=== PATIENT | female | born 1955 | race African-American/Black ===

== ENCOUNTER 2019-06-20 12:06 | Inpatient (IN) | payer OTHER ==
[2019-06-20 12:32] VITALS: BMI 35.2
--- NOTE | 2019-06-20 12:53 | HP ---
COWS - Scale Resting Pulse: 1= [place] 81-100 Sweatin= Chills/Flushing Restless Observation: 1= Difficult to Sit Still Pupil Size: 1= Pupils >than Normal Bone or Joint Aches: 4=Acute Joint/Muscle Pain Runny Nose/ Eye Tearin= Nasal Congestion GI Upset > 30mins: 1= Stomach Cramp Tremor Observation: 1= Tremor [place], Not Seen Yawning Observation: 1= 1-2x During Session Anxiety or Irritability: 1=Feels Anxious/Irritable Goose Flesh Skin: 0=Smooth Skin COWS Score: 13 CIWA Score - Admission Criteria OASAS Guidelines: Admission for Medically Managed Detox: Requires at least one of the followin. CIWA greater than 12 2. Seizures within the past 24 hours 3. Delirium tremens within the past 24 hours 4. Hallucinations within the past 24 hours 5. Acute intervention needed for co occurring medical disorder 6. Acute intervention needed for co occurring psychiatric disorder 7. Severe withdrawal that cannot be handled at a lower level of care (continued vomiting, continued diarrhea, abnormal vital signs) requiring intravenous medication and/or fluids 8. Admitting History and Physical - Admission Chief Complaint: "I want to stop sniffing heroin." History of Present Illness: 64 year old female with opioid dependence with withdrawal. She was in detox in January 2019 and when she was released from [facility] she immediately relapsed and started sniffing heroin again for 30 years. The detox was too short she felt. She denies overdose but wants to stop before she does end up overdosing. She has been close to overdose in the past. She is using 12 bags of heroin intranasally every day. She does not smoke ciggarettes. PMH: HTN, Arthritis of knees Psurg: None Psych: None History Source: Patient Limitations to Obtaining History: No Limitations - Past Medical History Cardiovascular: Yes: HTN Rheumatology: Yes: Other (arthritis of knees but does not have a primary care doctor) Admission [facility] Allergies/Adverse Reactions: Allergies Allergy/AdvReac Type Severity Reaction Status Date / Time No Known Allergies Allergy Verified 06/20/19 12:38 Exam Limitations: No Limitations - Ebola screening Have you traveled outside of the country in the last 21 days: No Have you had contact with anyone from an Ebola affected area: No Have you been sick,other than usual withdrawal symptoms: No Do you have a fever: No - Review of Systems Constitutional: Chills, Diaphoresis EENT: reports: No Symptoms Reported Respiratory: reports: No Symptoms reported Cardiac: reports: No Symptoms Reported GI: reports: Nausea, Abdominal cramping : reports: No Symptoms Reported Musculoskeletal: reports: Back Pain, Joint Pain, Muscle Pain Integumentary: reports: No Symptoms Reported Neuro: reports: No Symptoms reported Endocrine: reports: No Symptoms Reported Hematology: reports: No Symptoms Reported Psychiatric: reports: Judgement Intact, Mood/Affect Appropiate, Orientated x3, Agitated, Anxious Other Systems: Reviewed and Negative Patient History - Patient Medical History Hx Anemia: No Hx Asthma: No Hx Chronic Obstructive Pulmonary Disease (COPD): No Hx Cancer: No Hx Cardiac Disorders: No Hx Congestive Heart Failure: No Hx Hypertension: Yes Hx Hypercholesterolemia: No Hx Pacemaker: No HX Cerebrovascular Accident: No Hx Seizures: No Hx Dementia: No Hx Diabetes: No Hx Gastrointestinal Disorders: No Hx Liver Disease: No Hx Genitourinary Disorders: No Hx Sexually Transmitted Disorders: No Hx Renal Disease (ESRD): No Hx Thyroid Disease: No Hx Human Immunodeficiency Virus (HIV): No Hx Hepatitis C: No Hx Depression: No Hx Suicide Attempt: No Hx Bipolar Disorder: No Hx Schizophrenia: No - Patient Surgical History Past Surgical History: No - PPD History Previous Implant?: Yes Documented Results: Negative w/o proof Implanted On Prior R Admission?: No Date: 11/25/18 Results: negative PPD to be Administered?: Yes - Smoking Cessation Smoking history: Never smoked Have you smoked in the past 12 months: No Hx Chewing Tobacco Use: No Initiated information on smoking cessation: No - Substances abused Heroin Substance route: Inhalation Frequency: Daily Amount used: $80 Age of first use: 31 Date of last use: 06/19/19 Admission Physical Exam BHS - Vital Signs Vital Signs: Vital Signs - 24 hr 06/20/19 12:17 Temperature 97.3 F L Pulse Rate 89 Respiratory 20 Rate Blood Pressure 138/102 H - Physical General Appearance: Yes: Mild Distress, Tremorous, Irritable, Sweating HEENTM: Yes: EOMI, Hearing grossly Normal, Normal ENT Inspection, Normocephalic , Normal Voice, JOLLY, Pharynx Normal, Tm's normal Respiratory: Yes: Chest Non-Tender, Lungs Clear, Normal Breath Sounds, No Respiratory Distress, No Accessory Muscle Use Neck: Yes: No masses,lesions,Nodules, Supple, Trachea in good position Breast: Yes: Other (pendulous breasts bilaterally) Cardiology: Yes: Regular Rhythm, Regular Rate, S1, S2 Abdominal: Yes: Normal Bowel Sounds, Non Tender, Increased Bowel Sounds, Protuberent Genitourinary: Yes: Within Normal Limits Back: Yes: Normal Inspection Musculoskeletal: Yes: full range of Motion, Gait Steady, Pelvis Stable Extremities: Yes: Normal Capillary Refill, Normal Inspection, Normal Range of Motion, Non-Tender Neurological: Yes: mender knit goods II-XII NML intact, Fully Oriented, Alert, Motor Strength 5/5, Normal Mood/Affect, Normal Response Integumentary: Yes: Normal Color, Warm Lymphatic: Yes: Within Normal Limits - Diagnostic (1) Opioid dependence with withdrawal Current Visit: Yes Status: Acute (2) Hypertension Current Visit: Yes Status: Acute (3) Obesity Current Visit: Yes Status: Acute (4) Arthritis of both knees Current Visit: Yes Status: Acute Cleared for Admission [facility] - Detox or Rehab [facility] Level of Care: Medically Managed Detox Regimen/Protocol: Methadone Claeared for Rehab Admission: No Screened but not Admitted - Documentation of Visit Screened but not Admitted: No Inpatient Rehab Admission - Rehab Decision to Admit Inpatient rehab admission?: No
[2019-06-20] MEDS ORDERED: cloNIDine HCL 0.1 MG TABLET PO PRN (12:56)
[2019-06-20] MEDS ORDERED: ACETAMINOPHEN 325 MG TABLET (FP) PO PRN ×2 (12:56)
[2019-06-20] MEDS ORDERED: BISMUTH SUBSALICYLATE 524 MG/30 ML UD PO PRN (12:56)
[2019-06-20] MEDS ORDERED: MAGNESIUM HYDROX 2400MG/30ML ORAL SUSPENSION 30 ML CUP PO PRN (12:56)
[2019-06-20] MEDS ORDERED: MENTHOL/PHENOL 1 EACH UD MM PRN (12:56)
[2019-06-20] MEDS ORDERED: MAG HYDROX/AL HYDROX/SIMETH 30 ML UNIT-DOSE CUP PO PRN (12:56)
[2019-06-20] MEDS ORDERED: METHOCARBAMOL 500 MG TABLET PO PRN (12:56)
[2019-06-20] MEDS ORDERED: MAGNESIUM CITRATE 300 ML BOTTLE PO PRN (12:56)
[2019-06-20] MEDS ORDERED: METHADONE HCL 10 MG TABLET (FOR DETOX USE ONLY) PO ONE (13:45)
[2019-06-20] MEDS: THIAMINE HCL 100 MG TABLET (FP) PO SCH (22:14)
[2019-06-20] MEDS: MELATONIN 5 MG TABLETS PO PRN (22:16)
[2019-06-20] MEDS: hydrOXYzine PAMOATE 25 MG CAPSULE (FP) PO PRN (22:16)
[2019-06-21] MEDS ORDERED: METHADONE HCL 10 MG TABLET (FOR DETOX USE ONLY) ONE (08:20)
[2019-06-21] MEDS ORDERED: METHADONE HCL 5 MG TABLET (FOR DETOX USE ONLY) ONE (08:20)
--- NOTE | 2019-06-21 09:23 | PN ---
BHS COWS - Scale Resting Pulse: 1= [place] 81-100 Sweatin= Chills/Flushing Restless Observation: 0= Sits Still Pupil Size: 1= Pupils >than Normal Bone or Joint Aches: 1= Mild Discomfort Runny Nose/ Eye Tearin= None GI Upset > 30mins: 1= Stomach Cramp Tremor Observation of Outstretched Hands: 2= Slight Tremor Visible Yawning Observation: 0= None Anxiety or Irritability: 2=Irritable/Anxious Goose Flesh Skin: 3=Piloerection COWS Score: 12 BHS Progress Note (SOAP) Subjective: 64 years old female admitted on 06/20/19 for opiate withdrawal sx management treating with methadone detox regimen ate breakfast feeling tired resting on bed limited conversation with staff Objective: 06/21/19 09:22 Vital Signs Temperature 97.3 F L 06/21/19 09:12 Pulse Rate 72 06/21/19 09:12 Respiratory Rate 18 06/21/19 09:12 Blood Pressure 136/87 06/21/19 09:12 O2 Sat by Pulse Oximetry (%) Laboratory Last Values POC Urine HCG, Qual Negative 06/20/19 12:57 lab pending bp elevation clonidine 0.1 mg po q6h prn Assessment: 06/21/19 09:23 opiate withdrawal Plan: methadone regimen
[2019-06-21] MEDS ORDERED: clonazePAM 0.5 MG TABLET PO PRN (09:26)
[2019-06-21] MEDS ORDERED: METHADONE (DETOX) 20 MG, METHADONE (DETOX) 5 MG PO ONE (10:00)
[2019-06-21] MEDS: PRENATAL VITAMINS W/ FOLIC ACID TABLET (FP) PO SCH (10:18)
[2019-06-21 12:08] LABS: HEMATOCRIT 39.1 % (32.4-45.2); HEMOGLOBIN 12.5 GM/dL (10.7-15.3); MCH 29.1 pg (25.7-33.7); MCHC 32.1 g/dl (32.0-36.0); MEAN CELL VOLUME 90.7 fl (80-96); MEAN PLT VOLUME 9.6 fl (7.5-11.1); PLATELET COUNT 252 K/MM3 (134-434); RDW 13.8 % (11.6-15.6); WHITE BLOOD COUNT 5.1 K/mm3 (4.0-10.0)
[2019-06-21 12:25] LABS: ALBUMIN 3.8 g/dl (3.4-5.0); BILIRUBIN,TOTAL 0.4 mg/dL (0.2-1); BLOOD UREA NITROGEN 26.5 mg/dL (7-18); CALCIUM 9.4 mg/dL (8.5-10.1); CREATININE 1.3 mg/dL (0.55-1.3); POTASSIUM 3.8 mmol/L (3.5-5.1); TOT PROT 7.9 g/dl (6.4-8.2)
[2019-06-21] MEDS: AMOXICILLIN 500 MG CAPSULE (FP) PO SCH ×2 (16:28→22:20)
[2019-06-21] MEDS: cloNIDine HCL 0.1 MG TABLET PO PRN (18:04)
[2019-06-21] MEDS: THIAMINE HCL 100 MG TABLET (FP) PO SCH (22:20)
[2019-06-21] MEDS: MELATONIN 5 MG TABLETS PO PRN (22:20)
[2019-06-22] MEDS: AMOXICILLIN 500 MG CAPSULE (FP) PO SCH ×2 (09:46→22:11)
[2019-06-22] MEDS: PRENATAL VITAMINS W/ FOLIC ACID TABLET (FP) PO SCH (09:46)
[2019-06-22] MEDS ORDERED: METHADONE HCL 10 MG TABLET (FOR DETOX USE ONLY) PO ONE (10:00)
--- NOTE | 2019-06-22 14:06 | PN ---
BHS COWS - Scale Resting Pulse: 0= [place] 80 or Below Sweatin= Chills/Flushing Restless Observation: 0= Sits Still Pupil Size: 1= Pupils >than Normal Bone or Joint Aches: 1= Mild Discomfort Runny Nose/ Eye Tearin= Nasal Congestion GI Upset > 30mins: 1= Stomach Cramp Tremor Observation of Outstretched Hands: 1= Tremor [place], Not Seen Yawning Observation: 2= >3x During Session Anxiety or Irritability: 1=Feels Anxious/Irritable Goose Flesh Skin: 0=Smooth Skin COWS Score: 9 BHS Progress Note (SOAP) Subjective: 64 years old female admitted on 06/20/19 for opiate withdrawal sx management treating with methadone detox regimen ate breakfast in day room with peers encourage the patient to attend detox unit groups and meetings Objective: 06/22/19 14:06 Vital Signs Temperature 97.6 F 06/22/19 13:21 Pulse Rate 71 06/22/19 13:21 Respiratory Rate 18 06/22/19 13:21 Blood Pressure 146/98 06/22/19 13:21 O2 Sat by Pulse Oximetry (%) Laboratory Last Values WBC 5.1 K/mm3 (4.0-10.0) 06/21/19 07:00 RBC 4.30 M/mm3 (3.60-5.2) 06/21/19 07:00 Hgb 12.5 GM/dL (10.7-15.3) 06/21/19 07:00 Hct 39.1 % (32.4-45.2) 06/21/19 07:00 MCV 90.7 fl (80-96) 06/21/19 07:00 MCH 29.1 pg (25.7-33.7) 06/21/19 07:00 MCHC 32.1 g/dl (32.0-36.0) 06/21/19 07:00 RDW 13.8 % (11.6-15.6) 06/21/19 07:00 Plt Count 252 K/MM3 (134-434) 06/21/19 07:00 MPV 9.6 fl (7.5-11.1) 06/21/19 07:00 Sodium 141 mmol/L (136-145) 06/21/19 07:00 Potassium 3.8 mmol/L (3.5-5.1) 06/21/19 07:00 Chloride 110 mmol/L (98-107) H 06/21/19 07:00 Carbon Dioxide 24 mmol/L (21-32) 06/21/19 07:00 Anion Gap 7 MMOL/L (8-16) L 06/21/19 07:00 BUN 26.5 mg/dL (7-18) H 06/21/19 07:00 Creatinine 1.3 mg/dL (0.55-1.3) 06/21/19 07:00 Est GFR (CKD-EPI)AfAm 50.56 06/21/19 07:00 Est GFR (CKD-EPI)NonAf 43.62 06/21/19 07:00 Random Glucose 123 mg/dL (74-106) H 06/21/19 07:00 Calcium 9.4 mg/dL (8.5-10.1) 06/21/19 07:00 Total Bilirubin 0.4 mg/dL (0.2-1) 06/21/19 07:00 AST 24 U/L (15-37) 06/21/19 07:00 ALT 32 U/L (13-61) 06/21/19 07:00 Alkaline Phosphatase 117 U/L (45-117) 06/21/19 07:00 Total Protein 7.9 g/dl (6.4-8.2) 06/21/19 07:00 Albumin 3.8 g/dl (3.4-5.0) 06/21/19 07:00 POC Urine HCG, Qual Negative 06/20/19 12:57 RPR Titer Nonreactive (NONREACTIVE) 06/21/19 07:00 lab noted bun elevation encourage oral fluid 06/22/19 14:07 Assessment: 06/22/19 14:12 opiate withdrawal Plan: methadone regimen
[2019-06-22] MEDS: THIAMINE HCL 100 MG TABLET (FP) PO SCH (22:11)
[2019-06-22] MEDS: cloNIDine HCL 0.1 MG TABLET PO PRN (22:12)
[2019-06-22] MEDS: MELATONIN 5 MG TABLETS PO PRN (22:13)
[2019-06-22] MEDS: hydrOXYzine PAMOATE 25 MG CAPSULE (FP) PO PRN (22:13)
[2019-06-23] MEDS ORDERED: clonazePAM 0.5 MG TABLET PO PRN (00:01)
[2019-06-23] MEDS ORDERED: METHADONE HCL 5 MG TABLET (FOR DETOX USE ONLY) ONE (08:32)
[2019-06-23] MEDS ORDERED: METHADONE HCL 10 MG TABLET (FOR DETOX USE ONLY) ONE (08:32)
[2019-06-23] MEDS ORDERED: METHADONE (DETOX) 10 MG, METHADONE (DETOX) 5 MG PO ONE (10:00)
[2019-06-23] MEDS: PRENATAL VITAMINS W/ FOLIC ACID TABLET (FP) PO SCH (10:14)
[2019-06-23] MEDS: IBUPROFEN 400 MG TABLET (FP) PO PRN (10:14)
--- NOTE | 2019-06-23 12:54 | PN ---
BHS COWS - Scale Resting Pulse: 0= [place] 80 or Below Sweatin= Chills/Flushing Restless Observation: 0= Sits Still Pupil Size: 1= Pupils >than Normal Bone or Joint Aches: 1= Mild Discomfort (headache) Runny Nose/ Eye Tearin= None GI Upset > 30mins: 1= Stomach Cramp Tremor Observation of Outstretched Hands: 1= Tremor [place], Not Seen Yawning Observation: 0= None Anxiety or Irritability: 1=Feels Anxious/Irritable Goose Flesh Skin: 0=Smooth Skin COWS Score: 6 BHS Progress Note (SOAP) Subjective: 64 years old female admitted on 06/20/19 for opiate withdrawal sx management treating with methadone detox regimen feeling ok today mild headache and joints pain had motrin feeling better ate breakfast and lunch ambulating from bed to bathroom steady gait Objective: 06/23/19 12:49 Vital Signs Temperature 97.3 F L 06/23/19 09:30 Pulse Rate 77 06/23/19 09:30 Respiratory Rate 18 06/23/19 09:30 Blood Pressure 145/96 06/23/19 09:30 O2 Sat by Pulse Oximetry (%) Laboratory Last Values WBC 5.1 K/mm3 (4.0-10.0) 06/21/19 07:00 RBC 4.30 M/mm3 (3.60-5.2) 06/21/19 07:00 Hgb 12.5 GM/dL (10.7-15.3) 06/21/19 07:00 Hct 39.1 % (32.4-45.2) 06/21/19 07:00 MCV 90.7 fl (80-96) 06/21/19 07:00 MCH 29.1 pg (25.7-33.7) 06/21/19 07:00 MCHC 32.1 g/dl (32.0-36.0) 06/21/19 07:00 RDW 13.8 % (11.6-15.6) 06/21/19 07:00 Plt Count 252 K/MM3 (134-434) 06/21/19 07:00 MPV 9.6 fl (7.5-11.1) 06/21/19 07:00 Sodium 141 mmol/L (136-145) 06/21/19 07:00 Potassium 3.8 mmol/L (3.5-5.1) 06/21/19 07:00 Chloride 110 mmol/L (98-107) H 06/21/19 07:00 Carbon Dioxide 24 mmol/L (21-32) 06/21/19 07:00 Anion Gap 7 MMOL/L (8-16) L 06/21/19 07:00 BUN 26.5 mg/dL (7-18) H 06/21/19 07:00 Creatinine 1.3 mg/dL (0.55-1.3) 06/21/19 07:00 Est GFR (CKD-EPI)AfAm 50.56 06/21/19 07:00 Est GFR (CKD-EPI)NonAf 43.62 06/21/19 07:00 Random Glucose 123 mg/dL (74-106) H 06/21/19 07:00 Calcium 9.4 mg/dL (8.5-10.1) 06/21/19 07:00 Total Bilirubin 0.4 mg/dL (0.2-1) 06/21/19 07:00 AST 24 U/L (15-37) 06/21/19 07:00 ALT 32 U/L (13-61) 06/21/19 07:00 Alkaline Phosphatase 117 U/L (45-117) 06/21/19 07:00 Total Protein 7.9 g/dl (6.4-8.2) 06/21/19 07:00 Albumin 3.8 g/dl (3.4-5.0) 06/21/19 07:00 POC Urine HCG, Qual Negative 06/20/19 12:57 RPR Titer Nonreactive (NONREACTIVE) 06/21/19 07:00 lab noted 06/23/19 12:54 bp elevation begin amlodipine 5 mg po daily Assessment: 06/23/19 12:55 opiate withdrawal Plan: methadone regimen
[2019-06-23] MEDS: amLODIPine BESYLATE 5 MG TABLET (FP) PO SCH (22:01)
[2019-06-23] MEDS: THIAMINE HCL 100 MG TABLET (FP) PO SCH (22:01)
[2019-06-24] MEDS ORDERED: clonazePAM 0.5 MG TABLET PO PRN (00:01)
[2019-06-24] MEDS ORDERED: METHADONE HCL 10 MG TABLET (FOR DETOX USE ONLY) PO ONE (10:00)
[2019-06-24] MEDS: PRENATAL VITAMINS W/ FOLIC ACID TABLET (FP) PO SCH (10:04)
--- NOTE | 2019-06-24 13:28 | PN ---
S COWS - Scale Resting Pulse: 0= [place] 80 or Below Sweatin= No chills or Flushing Restless Observation: 0= Sits Still Pupil Size: 0= Normal to Room Light Bone or Joint Aches: 2= Severe Diffuse Aches Runny Nose/ Eye Tearin= None GI Upset > 30mins: 0= None Tremor Observation of Outstretched Hands: 0= None Yawning Observation: 0= None Anxiety or Irritability: 2=Irritable/Anxious Goose Flesh Skin: 0=Smooth Skin COWS Score: 4 BHS Progress Note (SOAP) Subjective: c/o mild withdrawal symptoms. Objective: 06/24/19 13:26 Vital Signs 06/24/19 06/24/19 06/24/19 06:40 09:20 13:19 Temperature 97.3 F L 97.6 F 97.9 F Pulse Rate 75 100 H 85 Respiratory 18 18 18 Rate Blood Pressure 127/83 131/90 127/94 Lab Results WBC 5.1 K/mm3 (4.0-10.0) 06/21/19 07:00 RBC 4.30 M/mm3 (3.60-5.2) 06/21/19 07:00 Hgb 12.5 GM/dL (10.7-15.3) 06/21/19 07:00 Hct 39.1 % (32.4-45.2) 06/21/19 07:00 MCV 90.7 fl (80-96) 06/21/19 07:00 MCHC 32.1 g/dl (32.0-36.0) 06/21/19 07:00 RDW 13.8 % (11.6-15.6) 06/21/19 07:00 Plt Count 252 K/MM3 (134-434) 06/21/19 07:00 Sodium 141 mmol/L (136-145) 06/21/19 07:00 Potassium 3.8 mmol/L (3.5-5.1) 06/21/19 07:00 Chloride 110 mmol/L (98-107) H 06/21/19 07:00 Carbon Dioxide 24 mmol/L (21-32) 06/21/19 07:00 Anion Gap 7 MMOL/L (8-16) L 06/21/19 07:00 BUN 26.5 mg/dL (7-18) H 06/21/19 07:00 Creatinine 1.3 mg/dL (0.55-1.3) 06/21/19 07:00 Random Glucose 123 mg/dL (74-106) H 06/21/19 07:00 Calcium 9.4 mg/dL (8.5-10.1) 06/21/19 07:00 Labs noted. Assessment: 06/24/19 13:26 AOX3, in no respiratory distress. Full ROM, ambulating in the unit. Mild Withdrawal symptoms. For d/c tomorrow. Plan: continue detox. D/C in AM.
[2019-06-24] MEDS: IBUPROFEN 400 MG TABLET (FP) PO PRN (16:48)
[2019-06-24] MEDS: MELATONIN 5 MG TABLETS PO PRN (22:35)
[2019-06-24] MEDS: THIAMINE HCL 100 MG TABLET (FP) PO SCH (22:35)
[2019-06-24] MEDS: amLODIPine BESYLATE 5 MG TABLET (FP) PO SCH (22:35)
[2019-06-25] MEDS ORDERED: METHADONE HCL 5 MG TABLET (FOR DETOX USE ONLY) PO ONE (06:00)
[2019-06-25 06:29] VITALS: TEMP 96.9
[2019-06-25 09:19] VITALS: BP 141/96; PULSE 85
--- NOTE | 2019-06-25 13:35 | DS ---
[facility] Detox Discharge Summary Admission Date: 06/20/19 Discharge Date: 06/25/19 - History Present History: Opioid Dependence Additional Comments: Pt is medically cleared and discharged today. Pt completed the detox protocol. Pt is encouraged to follow-up with an outpatient CD program and also to follow- up with her pmd. Pt verbalized understanding of the information given. Pt is AOX3 and in no acute respiratory distress. Pertinent Past History: h/o HTN and heroin use disorder. - Physical Exam Results Vital Signs: Vital Signs Temperature 96.9 F L 06/25/19 09:19 Pulse Rate 85 06/25/19 09:19 Respiratory Rate 17 06/25/19 09:19 Blood Pressure 141/96 06/25/19 09:19 O2 Sat by Pulse Oximetry (%) Vital Signs 06/25/19 06/25/19 06:29 09:19 Temperature 96.9 F L 96.9 F L Pulse Rate 71 85 Respiratory 18 17 Rate Blood Pressure 125/82 141/96 Lab Results WBC 5.1 K/mm3 (4.0-10.0) 06/21/19 07:00 RBC 4.30 M/mm3 (3.60-5.2) 06/21/19 07:00 Hgb 12.5 GM/dL (10.7-15.3) 06/21/19 07:00 Hct 39.1 % (32.4-45.2) 06/21/19 07:00 MCV 90.7 fl (80-96) 06/21/19 07:00 MCHC 32.1 g/dl (32.0-36.0) 06/21/19 07:00 RDW 13.8 % (11.6-15.6) 06/21/19 07:00 Plt Count 252 K/MM3 (134-434) 06/21/19 07:00 Sodium 141 mmol/L (136-145) 06/21/19 07:00 Potassium 3.8 mmol/L (3.5-5.1) 06/21/19 07:00 Chloride 110 mmol/L (98-107) H 06/21/19 07:00 Carbon Dioxide 24 mmol/L (21-32) 06/21/19 07:00 Anion Gap 7 MMOL/L (8-16) L 06/21/19 07:00 BUN 26.5 mg/dL (7-18) H 06/21/19 07:00 Creatinine 1.3 mg/dL (0.55-1.3) 06/21/19 07:00 Random Glucose 123 mg/dL (74-106) H 06/21/19 07:00 Calcium 9.4 mg/dL (8.5-10.1) 06/21/19 07:00 Labs noted. Pertinent Admission Physical Exam Findings: Withdrawal symptoms. - Treatment Hospital Course: Detox Protocol Followed, Detoxed Safely, Responded well, Discharged Condition Good - Medication Discharge Medications: Ambulatory Orders Naloxone HCl [Narcan] 4 mg NS ASDIR PRN #1 spray 06/21/19 - Diagnosis (1) Arthritis of both knees Status: Acute (2) Hypertension Status: Acute (3) Opioid dependence with withdrawal Status: Acute - AMA Did Patient Leave Against Medical Advice: No
== END 2019-06-25 09:17 | disposition home or self-care (01) | DRG 773 ==
LOC: YASAS 12:06 → Y3N 13:10
PROVIDERS: ADMIT Allergy & Immunology; ATTEND Allergy & Immunology
PROC: HZ2ZZZZ Detoxification Services for Substance Abuse Treatment (ICD-10-PCS; principal; 2019-06-20)
DX: F11.23 Opioid dependence with withdrawal (principal); I10 Essential (primary) hypertension; M17.0 Bilateral primary osteoarthritis of knee; E66.9 Obesity, unspecified; Z68.35 Body mass index [BMI] 35.0-35.9, adult
CPT/HCPCS: 36415; 80053; 81025; 85027; 86593; J0735

== ENCOUNTER 2021-08-27 17:22 | Inpatient (IN) | payer OTHER ==
[2021-08-27 20:09] VITALS: BMI 32.3
[2021-08-27] MEDS ORDERED: cloNIDine HCL 0.1 MG TABLET PO ONE (20:25)
[2021-08-27] MEDS ORDERED: LOPERAMIDE HCL 2 MG CAPSULE PO PRN (20:26)
[2021-08-27] MEDS ORDERED: MENTHOL/PHENOL 1 EACH UD MM PRN (20:26)
[2021-08-27] MEDS ORDERED: BISMUTH SUBSALICYLATE 524 MG/30 ML PO PRN (20:26)
[2021-08-27] MEDS ORDERED: ACETAMINOPHEN 325 MG TABLET (FP) PO PRN ×2 (20:26)
[2021-08-27] MEDS ORDERED: MAGNESIUM CITRATE 300 ML BOTTLE PO PRN (20:26)
[2021-08-27] MEDS ORDERED: IBUPROFEN 400 MG TABLET (FP) PO PRN (20:26)
[2021-08-27] MEDS ORDERED: ONDANSETRON *ODT* 4 MG TABLET SL PRN (20:26)
[2021-08-27] MEDS ORDERED: MAG HYDROX/AL HYDROX/SIMETH 30 ML UNIT-DOSE CUP PO PRN (20:26)
[2021-08-27] MEDS ORDERED: MAGNESIUM HYDROX 2400MG/30ML ORAL SUSPENSION 30 ML CUP PO PRN (20:26)
[2021-08-27] MEDS ORDERED: MELATONIN 5 MG TABLETS PO PRN (20:26)
[2021-08-27] MEDS ORDERED: cloNIDine HCL 0.1 MG TABLET ONE (20:32)
[2021-08-28] MEDS: THIAMINE HCL 100 MG TABLET (FP) PO SCH ×2 (02:52→23:36)
[2021-08-28 10:54] LABS: HEMATOCRIT 38.1 % (32.4-45.2); HEMOGLOBIN 12.8 GM/dL (10.7-15.3); MCH 29.9 pg (25.7-33.7); MCHC 33.6 g/dl (32.0-36.0); MEAN CELL VOLUME 89.2 fl (80-96); MEAN PLT VOLUME 8.8 fl (7.5-11.1); PLATELET COUNT 201 10^3/uL (134-434); RBC 4.27 M/mm3 (3.60-5.2); RDW 13.6 % (11.6-15.6); WHITE BLOOD COUNT 4.3 K/mm3 (4.0-10.0)
[2021-08-28 11:16] LABS: CALCIUM 9.6 mg/dL (8.5-10.1)
[2021-08-28 11:17] LABS: ALBUMIN 3.5 g/dl (3.4-5.0); BLOOD UREA NITROGEN 15.4 mg/dL (7-18)
[2021-08-28 11:20] LABS: CREATININE 0.9 mg/dL (0.55-1.3)
[2021-08-28 11:21] LABS: BILIRUBIN,TOTAL 0.7 mg/dL (0.2-1); TOT PROT 7.1 g/dl (6.4-8.2)
[2021-08-28] MEDS ORDERED: methaDONE HCL 10 MG TABLET (FOR DETOX USE ONLY) PO ONE (13:45)
[2021-08-28] MEDS: PRENATAL VITAMINS W/ FOLIC ACID TABLET (FP) PO SCH (13:47)
[2021-08-28] MEDS: cloNIDine HCL 0.1 MG TABLET PO PRN (18:47)
[2021-08-28] MEDS: METHOCARBAMOL 500 MG TABLET PO PRN (18:47)
[2021-08-29] MEDS: METHOCARBAMOL 500 MG TABLET PO PRN (06:03)
[2021-08-29] MEDS: cloNIDine HCL 0.1 MG TABLET PO PRN (06:03)
[2021-08-29] MEDS ORDERED: methaDONE HCL 10 MG TABLET (FOR DETOX USE ONLY) ONE (09:49)
[2021-08-29] MEDS: hydrOXYzine PAMOATE 25 MG CAPSULE (FP) PO PRN ×2 (10:23→22:49)
[2021-08-29] MEDS: PRENATAL VITAMINS W/ FOLIC ACID TABLET (FP) PO SCH (10:24)
[2021-08-29] MEDS: THIAMINE HCL 100 MG TABLET (FP) PO SCH (22:49)
[2021-08-30] MEDS ORDERED: methaDONE HCL 10 MG TABLET (FOR DETOX USE ONLY) PO ONE (10:00)
[2021-08-30] MEDS: METHOCARBAMOL 500 MG TABLET PO PRN ×2 (10:16→22:15)
[2021-08-30] MEDS: hydrOXYzine PAMOATE 25 MG CAPSULE (FP) PO PRN (10:16)
[2021-08-30] MEDS: PRENATAL VITAMINS W/ FOLIC ACID TABLET (FP) PO SCH (10:16)
[2021-08-30] MEDS: cloNIDine HCL 0.1 MG TABLET PO PRN (10:18)
[2021-08-30] MEDS: SUVOREXANT 10 MG TABLET PO PRN (22:14)
[2021-08-30] MEDS: THIAMINE HCL 100 MG TABLET (FP) PO SCH (22:14)
[2021-08-31] MEDS ORDERED: methaDONE HCL 10 MG TABLET (FOR DETOX USE ONLY) ONE (09:15)
[2021-08-31] MEDS: hydrOXYzine PAMOATE 25 MG CAPSULE (FP) PO PRN (10:26)
[2021-08-31] MEDS: METHOCARBAMOL 500 MG TABLET PO PRN (10:26)
[2021-08-31] MEDS: PRENATAL VITAMINS W/ FOLIC ACID TABLET (FP) PO SCH (10:26)
[2021-08-31] MEDS: SUVOREXANT 10 MG TABLET PO PRN (22:27)
[2021-08-31] MEDS: THIAMINE HCL 100 MG TABLET (FP) PO SCH (22:27)
[2021-09-01] MEDS ORDERED: methaDONE HCL 10 MG TABLET (FOR DETOX USE ONLY) PO ONE (10:00)
[2021-09-01] MEDS: METHOCARBAMOL 500 MG TABLET PO PRN (10:25)
[2021-09-01] MEDS: hydrOXYzine PAMOATE 25 MG CAPSULE (FP) PO PRN (10:25)
[2021-09-01] MEDS: PRENATAL VITAMINS W/ FOLIC ACID TABLET (FP) PO SCH (10:26)
[2021-09-01 21:11] VITALS: TEMP 97.6
[2021-09-01] MEDS: SUVOREXANT 10 MG TABLET PO PRN (22:21)
[2021-09-01] MEDS: THIAMINE HCL 100 MG TABLET (FP) PO SCH (22:22)
[2021-09-02 07:03] VITALS: BP 118/73; PULSE 76
[2021-09-02] MEDS: PRENATAL VITAMINS W/ FOLIC ACID TABLET (FP) PO SCH (09:02)
== END 2021-09-02 09:52 | disposition home or self-care (01) | DRG 773 ==
LOC: YASAS 17:22 → Y6N 22:57
PROVIDERS: ADMIT Allergy & Immunology; ATTEND Allergy & Immunology
PROC: HZ2ZZZZ Detoxification Services for Substance Abuse Treatment (ICD-10-PCS; principal; 2021-08-27)
DX: F11.23 Opioid dependence with withdrawal (principal); F14.10 Cocaine abuse, uncomplicated; F19.282 Other psychoactive substance dependence with psychoactive substance-induced sleep disorder; F19.24 Other psychoactive substance dependence with psychoactive substance-induced mood disorder; F39 Unspecified mood [affective] disorder; I10 Essential (primary) hypertension; M17.0 Bilateral primary osteoarthritis of knee; E66.9 Obesity, unspecified; Z68.32 Body mass index [BMI] 32.0-32.9, adult
CPT/HCPCS: 36415; 80053; 85027; 86780; C9803; J0735; U0003; U0005

== ENCOUNTER 2022-04-09 11:02 | Inpatient (IN) | payer OTHER ==
[2022-04-09 12:22] VITALS: BMI 33.3
[2022-04-09] MEDS ORDERED: BUPRENORPHINE HCL 150 MCG, BUPRENORPHINE HCL 75 MCG BC ONE (12:30)
[2022-04-09] MEDS ORDERED: BENZOCAINE/MENTHOL (CHLORASEPTIC ) LOZENGE MM PRN (12:30)
[2022-04-09] MEDS ORDERED: MAGNESIUM CITRATE 300 ML BOTTLE PO PRN (12:30)
[2022-04-09] MEDS ORDERED: BISMUTH SUBSALICYLATE 524 MG/30 ML PO PRN (12:30)
[2022-04-09] MEDS ORDERED: ONDANSETRON *ODT* 4 MG TABLET SL PRN (12:30)
[2022-04-09] MEDS ORDERED: cloNIDine HCL 0.1 MG TABLET PO ONE (12:30)
[2022-04-09] MEDS ORDERED: LOPERAMIDE HCL 2 MG CAPSULE PO PRN (12:30)
[2022-04-09] MEDS ORDERED: DICYCLOMINE HCL 10 MG CAPSULE PO PRN (12:30)
[2022-04-09] MEDS ORDERED: BUPRENORPHINE HCL 150 MCG, BUPRENORPHINE HCL 75 MCG BC PRN (12:30)
[2022-04-09] MEDS ORDERED: NALOXONE HCL (KLOXXADO) 8 MG SPRAY NS PRN (12:30)
[2022-04-09] MEDS ORDERED: ACETAMINOPHEN 325 MG TABLET (FP) PO PRN (12:30)
[2022-04-09] MEDS ORDERED: MAG HYDROX/AL HYDROX/SIMETH 30 ML UNIT-DOSE CUP PO PRN (12:30)
[2022-04-09] MEDS ORDERED: BUPRENORPHINE HCL 75 MCG FILM BC ONE (12:58)
[2022-04-09] MEDS ORDERED: BUPRENORPHINE HCL 150 MCG FILM BC ONE (12:58)
[2022-04-09] MEDS: PRENATAL VITAMINS W/ FOLIC ACID TABLET (FP) PO SCH (13:36)
[2022-04-09 17:29] LABS: HEMATOCRIT 36.7 % (32.4-45.2); MCH 29.9 pg (25.7-33.7); MCHC 32.9 g/dl (32.0-36.0); MEAN PLT VOLUME 9.1 fl (7.5-11.1); PLATELET COUNT 223 10^3/uL (134-434); RBC 4.03 M/mm3 (3.60-5.2); RDW 12.5 % (11.6-15.6); WHITE BLOOD COUNT 6.3 K/mm3 (4.0-10.0)
[2022-04-09 17:32] LABS: CALCIUM 9.5 mg/dL (8.5-10.1)
[2022-04-09 17:33] LABS: ALBUMIN 3.6 g/dl (3.4-5.0); BLOOD UREA NITROGEN 21.5 mg/dL (7-18)
[2022-04-09 17:36] LABS: CREATININE 1.2 mg/dL (0.55-1.3)
[2022-04-09 17:37] LABS: BILIRUBIN,TOTAL 0.4 mg/dL (0.2-1); TOT PROT 7.1 g/dl (6.4-8.2)
[2022-04-09] MEDS ORDERED: MELATONIN 5 MG TABLETS PO SCH (22:00)
[2022-04-09] MEDS: SUVOREXANT 10 MG TABLET PO PRN (22:12)
[2022-04-09] MEDS: THIAMINE HCL 100 MG TABLET (FP) PO SCH (22:13)
[2022-04-09] MEDS: hydrOXYzine PAMOATE 25 MG CAPSULE (FP) PO PRN (22:13)
[2022-04-09] MEDS: diazePAM 5 MG TABLET PO PRN (22:14)
[2022-04-09] MEDS: METHOCARBAMOL 500 MG TABLET PO PRN (22:15)
[2022-04-10] MEDS ORDERED: BUPRENORPHINE HCL 150 MCG, BUPRENORPHINE HCL 75 MCG BC PRN
[2022-04-10] MEDS: hydrOXYzine PAMOATE 25 MG CAPSULE (FP) PO PRN ×3 (05:49→22:20)
[2022-04-10] MEDS: BUPRENORPHINE HCL 150 MCG, BUPRENORPHINE HCL 75 MCG BC SCH ×2 (05:50→17:27)
[2022-04-10] MEDS: PRENATAL VITAMINS W/ FOLIC ACID TABLET (FP) PO SCH (10:36)
[2022-04-10] MEDS: FAMOTIDINE 20 MG TABLET PO SCH ×2 (11:12→22:15)
[2022-04-10] MEDS: amLODIPine BESYLATE 5 MG TABLET (FP) PO SCH (11:12)
[2022-04-10] MEDS: cloNIDine HCL 0.1 MG TABLET PO PRN (13:32)
[2022-04-10] MEDS: METHOCARBAMOL 500 MG TABLET PO PRN (17:27)
[2022-04-10] MEDS: diazePAM 5 MG TABLET PO PRN (22:15)
[2022-04-10] MEDS: THIAMINE HCL 100 MG TABLET (FP) PO SCH (22:15)
[2022-04-10] MEDS: SUVOREXANT 10 MG TABLET PO PRN (23:10)
[2022-04-11] MEDS: cloNIDine HCL 0.1 MG TABLET PO PRN ×3 (01:06→22:49)
[2022-04-11] MEDS: BUPRENORPHINE HCL 450 MCG FILM BC SCH ×2 (06:12→18:00)
[2022-04-11] MEDS: amLODIPine BESYLATE 5 MG TABLET (FP) PO SCH (10:35)
[2022-04-11] MEDS: PRENATAL VITAMINS W/ FOLIC ACID TABLET (FP) PO SCH (10:35)
[2022-04-11] MEDS: FAMOTIDINE 20 MG TABLET PO SCH ×2 (10:35→22:49)
[2022-04-11] MEDS: IBUPROFEN 600 MG TABLET (FP) PO PRN (10:37)
[2022-04-11] MEDS: METHOCARBAMOL 500 MG TABLET PO PRN ×2 (10:37→18:01)
[2022-04-11] MEDS: hydrOXYzine PAMOATE 25 MG CAPSULE (FP) PO PRN ×2 (18:00→22:48)
[2022-04-11] MEDS: SUVOREXANT 10 MG TABLET PO PRN (22:48)
[2022-04-11] MEDS: THIAMINE HCL 100 MG TABLET (FP) PO SCH (22:48)
[2022-04-12] MEDS: BUPRENORPHINE/NALOXONE 4 MG/1 MG FILM PACKET SL SCH ×2 (05:32→18:52)
[2022-04-12] MEDS: PRENATAL VITAMINS W/ FOLIC ACID TABLET (FP) PO SCH (10:46)
[2022-04-12] MEDS: METHOCARBAMOL 500 MG TABLET PO PRN ×2 (10:46→22:30)
[2022-04-12] MEDS: FAMOTIDINE 20 MG TABLET PO SCH ×2 (10:46→22:28)
[2022-04-12] MEDS: amLODIPine BESYLATE 5 MG TABLET (FP) PO SCH (10:46)
[2022-04-12] MEDS: hydrOXYzine PAMOATE 25 MG CAPSULE (FP) PO PRN (10:46)
[2022-04-12] MEDS: THIAMINE HCL 100 MG TABLET (FP) PO SCH (22:28)
[2022-04-12] MEDS: cloNIDine HCL 0.1 MG TABLET PO PRN (22:28)
[2022-04-13] MEDS ORDERED: BUPRENORPHINE/NALOXONE 8 MG/2 MG FILM PACKET SL ONE (06:00)
[2022-04-13] MEDS: PRENATAL VITAMINS W/ FOLIC ACID TABLET (FP) PO SCH (10:36)
[2022-04-13] MEDS: amLODIPine BESYLATE 5 MG TABLET (FP) PO SCH (10:36)
[2022-04-13] MEDS: METHOCARBAMOL 500 MG TABLET PO PRN (10:36)
[2022-04-13] MEDS: hydrOXYzine PAMOATE 25 MG CAPSULE (FP) PO PRN ×2 (10:37→22:16)
[2022-04-13] MEDS: FAMOTIDINE 20 MG TABLET PO SCH ×2 (10:37→22:16)
[2022-04-13] MEDS: MELATONIN 5 MG TABLETS PO PRN (22:17)
[2022-04-13] MEDS: THIAMINE HCL 100 MG TABLET (FP) PO SCH (22:17)
[2022-04-14] MEDS: PRENATAL VITAMINS W/ FOLIC ACID TABLET (FP) PO SCH (10:26)
[2022-04-14] MEDS: IBUPROFEN 600 MG TABLET (FP) PO PRN (10:26)
[2022-04-14] MEDS: FAMOTIDINE 20 MG TABLET PO SCH ×2 (10:26→21:44)
[2022-04-14] MEDS: amLODIPine BESYLATE 5 MG TABLET (FP) PO SCH (10:26)
[2022-04-14] MEDS: METHOCARBAMOL 500 MG TABLET PO PRN (10:26)
[2022-04-14] MEDS: BUPRENORPHINE/NALOXONE 8 MG/2 MG FILM PACKET SL SCH (21:44)
[2022-04-14] MEDS: THIAMINE HCL 100 MG TABLET (FP) PO SCH (21:44)
[2022-04-14] MEDS: MELATONIN 5 MG TABLETS PO PRN (21:45)
[2022-04-15] MEDS: PRENATAL VITAMINS W/ FOLIC ACID TABLET (FP) PO SCH (10:39)
[2022-04-15] MEDS: FAMOTIDINE 20 MG TABLET PO SCH ×2 (10:40→21:17)
[2022-04-15] MEDS: amLODIPine BESYLATE 5 MG TABLET (FP) PO SCH (10:40)
[2022-04-15] MEDS: BUPRENORPHINE/NALOXONE 8 MG/2 MG FILM PACKET SL SCH ×2 (10:41→21:17)
[2022-04-15] MEDS: THIAMINE HCL 100 MG TABLET (FP) PO SCH (21:17)
[2022-04-15] MEDS: hydrOXYzine PAMOATE 25 MG CAPSULE (FP) PO PRN (21:18)
[2022-04-15] MEDS: MELATONIN 5 MG TABLETS PO PRN (21:18)
[2022-04-16] MEDS: BUPRENORPHINE/NALOXONE 8 MG/2 MG FILM PACKET SL SCH ×2 (10:54→21:16)
[2022-04-16] MEDS: FAMOTIDINE 20 MG TABLET PO SCH ×2 (10:54→21:16)
[2022-04-16] MEDS: PRENATAL VITAMINS W/ FOLIC ACID TABLET (FP) PO SCH (10:54)
[2022-04-16] MEDS: amLODIPine BESYLATE 5 MG TABLET (FP) PO SCH (10:54)
[2022-04-16] MEDS: THIAMINE HCL 100 MG TABLET (FP) PO SCH (21:16)
[2022-04-16] MEDS: MELATONIN 5 MG TABLETS PO PRN (21:16)
[2022-04-17] MEDS: BUPRENORPHINE/NALOXONE 8 MG/2 MG FILM PACKET SL SCH ×2 (09:58→21:14)
[2022-04-17] MEDS: amLODIPine BESYLATE 5 MG TABLET (FP) PO SCH (09:58)
[2022-04-17] MEDS: PRENATAL VITAMINS W/ FOLIC ACID TABLET (FP) PO SCH (09:58)
[2022-04-17] MEDS: FAMOTIDINE 20 MG TABLET PO SCH ×2 (09:58→21:14)
[2022-04-17] MEDS: ACETAMINOPHEN 325 MG TABLET (FP) PO PRN (09:59)
[2022-04-17] MEDS ORDERED: COLLOIDAL OATMEAL 1 BAR EACH TP PRN (12:16)
[2022-04-17] MEDS: THIAMINE HCL 100 MG TABLET (FP) PO SCH (21:14)
[2022-04-17] MEDS: MELATONIN 5 MG TABLETS PO PRN (21:14)
[2022-04-18] MEDS: BUPRENORPHINE/NALOXONE 8 MG/2 MG FILM PACKET SL SCH ×2 (10:45→21:11)
[2022-04-18] MEDS: amLODIPine BESYLATE 5 MG TABLET (FP) PO SCH (10:45)
[2022-04-18] MEDS: FAMOTIDINE 20 MG TABLET PO SCH ×2 (10:45→21:11)
[2022-04-18] MEDS: PRENATAL VITAMINS W/ FOLIC ACID TABLET (FP) PO SCH (10:45)
[2022-04-18] MEDS: THIAMINE HCL 100 MG TABLET (FP) PO SCH (21:11)
[2022-04-18] MEDS: MELATONIN 5 MG TABLETS PO PRN (21:11)
[2022-04-19] MEDS: amLODIPine BESYLATE 5 MG TABLET (FP) PO SCH (10:50)
[2022-04-19] MEDS: BUPRENORPHINE/NALOXONE 8 MG/2 MG FILM PACKET SL SCH ×2 (10:50→21:50)
[2022-04-19] MEDS: FAMOTIDINE 20 MG TABLET PO SCH ×2 (10:50→21:48)
[2022-04-19] MEDS: PRENATAL VITAMINS W/ FOLIC ACID TABLET (FP) PO SCH (10:50)
[2022-04-19] MEDS: ACETAMINOPHEN 325 MG TABLET (FP) PO PRN (10:51)
[2022-04-19] MEDS: MELATONIN 5 MG TABLETS PO PRN (21:48)
[2022-04-19] MEDS: IBUPROFEN 400 MG TABLET (FP) PO PRN (21:49)
[2022-04-19] MEDS: THIAMINE HCL 100 MG TABLET (FP) PO SCH (21:49)
[2022-04-20] MEDS: FAMOTIDINE 20 MG TABLET PO SCH ×2 (10:44→21:30)
[2022-04-20] MEDS: amLODIPine BESYLATE 5 MG TABLET (FP) PO SCH (10:44)
[2022-04-20] MEDS: PRENATAL VITAMINS W/ FOLIC ACID TABLET (FP) PO SCH (10:44)
[2022-04-20] MEDS: ACETAMINOPHEN 325 MG TABLET (FP) PO PRN (10:45)
[2022-04-20] MEDS: BUPRENORPHINE/NALOXONE 8 MG/2 MG FILM PACKET SL SCH ×2 (10:47→21:31)
[2022-04-20] MEDS: THIAMINE HCL 100 MG TABLET (FP) PO SCH (21:31)
[2022-04-20] MEDS: MELATONIN 5 MG TABLETS PO PRN (21:31)
[2022-04-20] MEDS: IBUPROFEN 600 MG TABLET (FP) PO PRN (21:32)
[2022-04-20] MEDS: hydrOXYzine PAMOATE 25 MG CAPSULE (FP) PO PRN (21:33)
[2022-04-21] MEDS: BUPRENORPHINE/NALOXONE 8 MG/2 MG FILM PACKET SL SCH ×2 (10:42→21:11)
[2022-04-21] MEDS: IBUPROFEN 600 MG TABLET (FP) PO PRN (10:42)
[2022-04-21] MEDS: amLODIPine BESYLATE 5 MG TABLET (FP) PO SCH (10:42)
[2022-04-21] MEDS: PRENATAL VITAMINS W/ FOLIC ACID TABLET (FP) PO SCH (10:42)
[2022-04-21] MEDS: FAMOTIDINE 20 MG TABLET PO SCH ×2 (10:42→21:11)
[2022-04-21] MEDS: THIAMINE HCL 100 MG TABLET (FP) PO SCH (21:11)
[2022-04-21] MEDS: MELATONIN 5 MG TABLETS PO PRN (21:11)
[2022-04-22] MEDS: PRENATAL VITAMINS W/ FOLIC ACID TABLET (FP) PO SCH (10:49)
[2022-04-22] MEDS: BUPRENORPHINE/NALOXONE 8 MG/2 MG FILM PACKET SL SCH ×2 (10:51→21:28)
[2022-04-22] MEDS: amLODIPine BESYLATE 5 MG TABLET (FP) PO SCH (10:51)
[2022-04-22] MEDS: FAMOTIDINE 20 MG TABLET PO SCH ×2 (10:51→21:28)
[2022-04-22] MEDS: IBUPROFEN 600 MG TABLET (FP) PO PRN (10:54)
[2022-04-22] MEDS: MELATONIN 5 MG TABLETS PO PRN (21:28)
[2022-04-22] MEDS: hydrOXYzine PAMOATE 25 MG CAPSULE (FP) PO PRN (21:28)
[2022-04-22] MEDS: THIAMINE HCL 100 MG TABLET (FP) PO SCH (21:29)
[2022-04-23] MEDS: FAMOTIDINE 20 MG TABLET PO SCH ×2 (10:30→21:16)
[2022-04-23] MEDS: BUPRENORPHINE/NALOXONE 8 MG/2 MG FILM PACKET SL SCH ×2 (10:30→21:20)
[2022-04-23] MEDS: amLODIPine BESYLATE 5 MG TABLET (FP) PO SCH (10:30)
[2022-04-23] MEDS: PRENATAL VITAMINS W/ FOLIC ACID TABLET (FP) PO SCH (10:30)
[2022-04-23] MEDS: IBUPROFEN 600 MG TABLET (FP) PO PRN (10:30)
[2022-04-23] MEDS: MAGNESIUM HYDROX 2400MG/30ML ORAL SUSPENSION 30 ML CUP PO PRN (17:48)
[2022-04-23] MEDS: hydrOXYzine PAMOATE 25 MG CAPSULE (FP) PO PRN (21:17)
[2022-04-23] MEDS: MELATONIN 5 MG TABLETS PO PRN (21:17)
[2022-04-23] MEDS: THIAMINE HCL 100 MG TABLET (FP) PO SCH (21:20)
[2022-04-24] MEDS: hydrOXYzine PAMOATE 25 MG CAPSULE (FP) PO PRN ×2 (06:21→21:27)
[2022-04-24] MEDS: amLODIPine BESYLATE 5 MG TABLET (FP) PO SCH (10:12)
[2022-04-24] MEDS: FAMOTIDINE 20 MG TABLET PO SCH ×2 (10:12→21:27)
[2022-04-24] MEDS: IBUPROFEN 600 MG TABLET (FP) PO PRN (10:13)
[2022-04-24] MEDS: BUPRENORPHINE/NALOXONE 8 MG/2 MG FILM PACKET SL SCH ×2 (10:13→21:27)
[2022-04-24] MEDS: PRENATAL VITAMINS W/ FOLIC ACID TABLET (FP) PO SCH (10:16)
[2022-04-24] MEDS: THIAMINE HCL 100 MG TABLET (FP) PO SCH (21:27)
[2022-04-24] MEDS: MELATONIN 5 MG TABLETS PO PRN (21:28)
[2022-04-25] MEDS: PRENATAL VITAMINS W/ FOLIC ACID TABLET (FP) PO SCH (10:44)
[2022-04-25] MEDS: IBUPROFEN 600 MG TABLET (FP) PO PRN (10:45)
[2022-04-25] MEDS: FAMOTIDINE 20 MG TABLET PO SCH ×2 (10:45→21:48)
[2022-04-25] MEDS: amLODIPine BESYLATE 5 MG TABLET (FP) PO SCH (10:45)
[2022-04-25] MEDS: BUPRENORPHINE/NALOXONE 8 MG/2 MG FILM PACKET SL SCH ×2 (10:47→21:47)
[2022-04-25] MEDS: MELATONIN 5 MG TABLETS PO PRN (21:48)
[2022-04-25] MEDS: THIAMINE HCL 100 MG TABLET (FP) PO SCH (21:48)
[2022-04-26] MEDS: PRENATAL VITAMINS W/ FOLIC ACID TABLET (FP) PO SCH (10:22)
[2022-04-26] MEDS: FAMOTIDINE 20 MG TABLET PO SCH ×2 (10:22→22:01)
[2022-04-26] MEDS: CELECOXIB 100 MG CAPSULE PO PRN ×2 (10:23→22:01)
[2022-04-26] MEDS: amLODIPine BESYLATE 5 MG TABLET (FP) PO SCH (10:23)
[2022-04-26] MEDS: BUPRENORPHINE/NALOXONE 8 MG/2 MG FILM PACKET SL SCH ×2 (10:23→22:02)
[2022-04-26] MEDS: hydrOXYzine PAMOATE 25 MG CAPSULE (FP) PO PRN (22:01)
[2022-04-26] MEDS: THIAMINE HCL 100 MG TABLET (FP) PO SCH (22:01)
[2022-04-26] MEDS: MELATONIN 5 MG TABLETS PO PRN (22:02)
[2022-04-27] MEDS: BUPRENORPHINE/NALOXONE 8 MG/2 MG FILM PACKET SL SCH ×2 (10:31→22:07)
[2022-04-27] MEDS: PRENATAL VITAMINS W/ FOLIC ACID TABLET (FP) PO SCH (10:31)
[2022-04-27] MEDS: amLODIPine BESYLATE 5 MG TABLET (FP) PO SCH (10:31)
[2022-04-27] MEDS: FAMOTIDINE 20 MG TABLET PO SCH ×2 (10:31→22:08)
[2022-04-27] MEDS: THIAMINE HCL 100 MG TABLET (FP) PO SCH (22:07)
[2022-04-27] MEDS: CELECOXIB 100 MG CAPSULE PO PRN (22:07)
[2022-04-27] MEDS: MELATONIN 5 MG TABLETS PO PRN (22:07)
[2022-04-27] MEDS: hydrOXYzine PAMOATE 25 MG CAPSULE (FP) PO PRN (22:07)
[2022-04-28] MEDS: IBUPROFEN 400 MG TABLET (FP) PO PRN (00:49)
[2022-04-28] MEDS: PRENATAL VITAMINS W/ FOLIC ACID TABLET (FP) PO SCH (10:37)
[2022-04-28] MEDS: amLODIPine BESYLATE 5 MG TABLET (FP) PO SCH (10:37)
[2022-04-28] MEDS: BUPRENORPHINE/NALOXONE 8 MG/2 MG FILM PACKET SL SCH ×2 (10:38→21:38)
[2022-04-28] MEDS: CELECOXIB 100 MG CAPSULE PO PRN ×2 (10:38→21:38)
[2022-04-28] MEDS: FAMOTIDINE 20 MG TABLET PO SCH ×2 (10:38→21:38)
[2022-04-28] MEDS: MELATONIN 5 MG TABLETS PO PRN (21:38)
[2022-04-28] MEDS: THIAMINE HCL 100 MG TABLET (FP) PO SCH (21:38)
[2022-04-29] MEDS: ACETAMINOPHEN 325 MG TABLET (FP) PO PRN (02:55)
[2022-04-29] MEDS: amLODIPine BESYLATE 5 MG TABLET (FP) PO SCH (10:42)
[2022-04-29] MEDS: PRENATAL VITAMINS W/ FOLIC ACID TABLET (FP) PO SCH (10:42)
[2022-04-29] MEDS: BUPRENORPHINE/NALOXONE 8 MG/2 MG FILM PACKET SL SCH ×2 (10:43→21:22)
[2022-04-29] MEDS: FAMOTIDINE 20 MG TABLET PO SCH ×2 (10:43→21:22)
[2022-04-29] MEDS: CELECOXIB 100 MG CAPSULE PO PRN (10:43)
[2022-04-29] MEDS: MAGNESIUM HYDROX 2400MG/30ML ORAL SUSPENSION 30 ML CUP PO PRN (10:56)
[2022-04-29] MEDS: MELATONIN 5 MG TABLETS PO PRN (21:22)
[2022-04-29] MEDS: THIAMINE HCL 100 MG TABLET (FP) PO SCH (21:22)
[2022-04-30] MEDS: CELECOXIB 100 MG CAPSULE PO PRN (09:55)
[2022-04-30] MEDS: PRENATAL VITAMINS W/ FOLIC ACID TABLET (FP) PO SCH (09:55)
[2022-04-30] MEDS: BUPRENORPHINE/NALOXONE 8 MG/2 MG FILM PACKET SL SCH ×2 (09:56→21:13)
[2022-04-30] MEDS: amLODIPine BESYLATE 5 MG TABLET (FP) PO SCH (09:56)
[2022-04-30] MEDS: FAMOTIDINE 20 MG TABLET PO SCH ×2 (09:56→21:13)
[2022-04-30] MEDS: MELATONIN 5 MG TABLETS PO PRN (21:13)
[2022-04-30] MEDS: THIAMINE HCL 100 MG TABLET (FP) PO SCH (21:13)
[2022-05-01] MEDS: CELECOXIB 100 MG CAPSULE PO PRN (10:11)
[2022-05-01] MEDS: FAMOTIDINE 20 MG TABLET PO SCH ×2 (10:11→21:15)
[2022-05-01] MEDS: amLODIPine BESYLATE 5 MG TABLET (FP) PO SCH (10:11)
[2022-05-01] MEDS: BUPRENORPHINE/NALOXONE 8 MG/2 MG FILM PACKET SL SCH ×2 (10:12→21:16)
[2022-05-01] MEDS: PRENATAL VITAMINS W/ FOLIC ACID TABLET (FP) PO SCH (10:12)
[2022-05-01] MEDS: THIAMINE HCL 100 MG TABLET (FP) PO SCH (21:15)
[2022-05-01] MEDS: MELATONIN 5 MG TABLETS PO PRN (21:15)
[2022-05-02] MEDS: amLODIPine BESYLATE 5 MG TABLET (FP) PO SCH (10:37)
[2022-05-02] MEDS: PRENATAL VITAMINS W/ FOLIC ACID TABLET (FP) PO SCH (10:37)
[2022-05-02] MEDS: FAMOTIDINE 20 MG TABLET PO SCH ×2 (10:37→21:19)
[2022-05-02] MEDS: BUPRENORPHINE/NALOXONE 8 MG/2 MG FILM PACKET SL SCH ×2 (10:39→21:19)
[2022-05-02] MEDS: MELATONIN 5 MG TABLETS PO PRN (21:19)
[2022-05-02] MEDS: THIAMINE HCL 100 MG TABLET (FP) PO SCH (21:19)
[2022-05-03] MEDS: FAMOTIDINE 20 MG TABLET PO SCH ×2 (10:36→22:08)
[2022-05-03] MEDS: CELECOXIB 100 MG CAPSULE PO PRN (10:36)
[2022-05-03] MEDS: amLODIPine BESYLATE 5 MG TABLET (FP) PO SCH (10:36)
[2022-05-03] MEDS: PRENATAL VITAMINS W/ FOLIC ACID TABLET (FP) PO SCH (10:36)
[2022-05-03] MEDS: BUPRENORPHINE/NALOXONE 8 MG/2 MG FILM PACKET SL SCH ×2 (10:37→22:08)
[2022-05-03] MEDS: MELATONIN 5 MG TABLETS PO PRN (22:07)
[2022-05-03] MEDS: THIAMINE HCL 100 MG TABLET (FP) PO SCH (22:08)
[2022-05-03] MEDS: hydrOXYzine PAMOATE 25 MG CAPSULE (FP) PO PRN (22:08)
[2022-05-04 06:08] VITALS: RESP 18
[2022-05-04] MEDS: PRENATAL VITAMINS W/ FOLIC ACID TABLET (FP) PO SCH (10:47)
[2022-05-04] MEDS: amLODIPine BESYLATE 5 MG TABLET (FP) PO SCH (10:47)
[2022-05-04] MEDS: FAMOTIDINE 20 MG TABLET PO SCH ×2 (10:47→22:01)
[2022-05-04] MEDS: CELECOXIB 100 MG CAPSULE PO PRN (10:48)
[2022-05-04] MEDS: BUPRENORPHINE/NALOXONE 8 MG/2 MG FILM PACKET SL SCH ×2 (10:49→22:01)
[2022-05-04] MEDS: THIAMINE HCL 100 MG TABLET (FP) PO SCH (22:01)
[2022-05-04] MEDS: MELATONIN 5 MG TABLETS PO PRN (22:01)
[2022-05-05 07:15] VITALS: TEMP 97.5
[2022-05-05] MEDS: FAMOTIDINE 20 MG TABLET PO SCH (09:09)
[2022-05-05] MEDS: amLODIPine BESYLATE 5 MG TABLET (FP) PO SCH (09:09)
[2022-05-05] MEDS: CELECOXIB 100 MG CAPSULE PO PRN (09:10)
[2022-05-05] MEDS: BUPRENORPHINE/NALOXONE 8 MG/2 MG FILM PACKET SL SCH (09:10)
[2022-05-05] MEDS: PRENATAL VITAMINS W/ FOLIC ACID TABLET (FP) PO SCH (09:12)
[2022-05-05 11:25] VITALS: BP 152/87; PULSE 113
== END 2022-05-05 09:35 | disposition home or self-care (01) | DRG 895 ==
LOC: YASAS 11:02 → Y6N 13:17 → Y5N 04-14 15:30
PROVIDERS: ADMIT Allergy & Immunology; ATTEND Psychiatry & Neurology Pain Medicine
PROC: HZ2ZZZZ Detoxification Services for Substance Abuse Treatment (ICD-10-PCS; 2022-04-09)
PROC: HZ42ZZZ Group Counseling for Substance Abuse Treatment, Cognitive-Behavioral (ICD-10-PCS; principal; 2022-04-14)
DX: F11.20 Opioid dependence, uncomplicated (principal); F14.20 Cocaine dependence, uncomplicated; F19.282 Other psychoactive substance dependence with psychoactive substance-induced sleep disorder; F19.24 Other psychoactive substance dependence with psychoactive substance-induced mood disorder; F31.9 Bipolar disorder, unspecified; F39 Unspecified mood [affective] disorder; I10 Essential (primary) hypertension; M17.0 Bilateral primary osteoarthritis of knee; M25.512 Pain in left shoulder; E66.9 Obesity, unspecified; Z68.33 Body mass index [BMI] 33.0-33.9, adult
CPT/HCPCS: 36415; 80053; 85027; 86780; 93005; 93010; C9803-CS; U0003; U0005